=== PATIENT | female | born 1995 | race Caucasian/White ===

== ENCOUNTER 2018-12-03 13:45 | Outpatient (CLI) | payer BC ==
--- NOTE | 2018-12-03 15:04 | ULT ---
BILATERAL RENAL ULTRASOUND: COMPARISON: None. HISTORY: Hematuria. TECHNIQUE: Multiplanar, nicholas scale, and color Doppler images were obtained in a renal ultrasound. FINDINGS: The kidneys are normal in echogenicity without hydronephrosis or calculi and each measure 9.4 cm in l ength. The urinary bladder is decompressed as the patient voided just prior to the exam. IMPRESSION: Unremarkable renal ultrasound. POS: [facility]
== END 2018-12-03 13:46 | disposition home or self-care (01) ==
LOC: BICULT 13:45
PROVIDERS: ATTEND Family Medicine
DX: R31.29 Other microscopic hematuria (principal)
CPT/HCPCS: 76770